=== PATIENT | female | born 1990 | race African-American/Black ===

== ENCOUNTER 2018-08-04 08:27 | Emergency (ER) | payer OTHER ==
[2018-08-04 08:39] VITALS: BP 137/84; PULSE 55; TEMP 98; BMI 28.8
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
[2018-08-04] MEDS ORDERED: IBUPROFEN 400 MG TABLET (FP) PO ONE ×2 (09:33→09:55)
== END 2018-08-04 09:59 | disposition home or self-care (01) ==
LOC: JERFT 08:27
DX: R51 Headache (principal); V43.52XA Car driver injured in collision with other type car in traffic accident, initial encounter; Y93.89 Activity, other specified; Y92.410 Unspecified street and highway as the place of occurrence of the external cause
CPT/HCPCS: 99281-25